=== PATIENT | male | born 1965 | race Caucasian/White ===

== ENCOUNTER 2019-05-07 08:24 | Emergency (ER) | payer MEDICAID ==
[~2019-05-07] VITALS: Ht 172.7 cm; Wt 83.0 kg
[2019-05-07 08:28] VITALS: BP 136/80
--- NOTE | 2019-05-07 08:35 | NUR ---
AMB TO BED 04
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
[2019-05-07] MEDS ORDERED: HYDROcodone/APAP 5/325 MG 1 TAB TAB PO ONE (09:35)
--- NOTE | 2019-05-07 09:42 | NUR ---
APPLIED VISHAL TAPE TO LEFT 5TH AND 4TH DIGITS. APPLIED ORTHO SHOE TO LEFT FOOT
[2019-05-07 09:57] VITALS: BP 136/80
--- NOTE | 2019-05-07 09:58 | NUR ---
Patient discharged with v/s stable. Written and verbal after care instructions given and explained. Patient alert, oriented and verbalized understanding of instructions. Ambulatory with limping noted. All questions addressed prior to discharge. ID band removed. Patient advised to follow up with PMD. Rx of IBUPROFEN, NORCO given. Patient educated on indication of medication including possible reaction and side effects. Opportunity to ask questions provided and answered.
== END 2019-05-07 09:58 | disposition home or self-care (01) ==
LOC: MED 08:24
DX: S92.512A Displaced fracture of proximal phalanx of left lesser toe(s), initial encounter for closed fracture (principal); X50.9XXA Other and unspecified overexertion or strenuous movements or postures, initial encounter; Y93.89 Activity, other specified; Y92.89 Other specified places as the place of occurrence of the external cause; Y99.8 Other external cause status
CPT/HCPCS: 73660; 99283; Q0092